=== PATIENT | female | born 1990 | race Caucasian/White ===

== ENCOUNTER 2020-11-09 12:39 | Emergency (ER) | payer BC ==
[2020-11-09 12:44] VITALS: RESP 18; TEMP 97.5
[2020-11-09] MEDS ORDERED: SODIUM CHLORIDE 0.9% 1,000 ML IV STA (12:55)
[2020-11-09] MEDS ORDERED: diphenhydrAMINE 50 MG/ML 1 ML VIAL IVP STA (12:55)
[2020-11-09] MEDS ORDERED: ONDANSETRON 4 MG/2 ML VIAL IVP STA (12:55)
--- NOTE | 2020-11-09 13:12 | ED ---
Nausea/Vomiting/Diarrhea HPI - General Chief complaint: Nausea/Vomiting/Diarrhea Stated complaint: 19wks preg, vomiting, near syncope Time Seen by Provider: 11/09/20 12:47 Source: patient, family Mode of arrival: wheelchair Limitations: no limitations - History of Present Illness Initial comments: Patient is a 30-year-old female, currently 19 weeks , presenting to emergency Department with complaints of acute onset of nausea, vomiting, lighthe adedness and abdominal cramping that seemed to start this morning. She states she has been camping over the past few days, some kids that she has been camping with came down with a stomach flu, she developed the symptoms today. No fevers that she is aware of. She is complaining of some chest tightness but feels like it could be coming from vomiting so much. She denies any cardiac history. She is complaining of some lower abdominal cramping. She has been feeling baby move earlier this morning but not so much in the past 1-2 hours. She denies any vaginal bleeding. She is , [employer] is Dr. Farley. 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 Thus far, some intermittent mild nausea throughout the but nothing severe. She feels lightheaded appears unable to tolerate oral intake since this morning. Patient denies any shortness of breath, denies any dysuria. She has no further complaints at this time. Upon arrival to the ER her vitals are stable. - Related Data Previous Rx's Medication Instructions Recorded Ondansetron Odt [Zofran Odt] 4 mg PO Q8HR PRN #10 tab 11/09/20 Allergies Allergy/AdvReac Type Severity Reaction Status Date / Time No Known Allergies Allergy Verified 11/09/20 12:40 Review of Systems ROS Statement: Those systems with pertinent positive or pertinent negative responses have been documented in the HPI. ROS Other: All systems not noted in ROS Statement are negative. Past Medical History Past Medical History: No Reported History History of Any Multi-Drug Resistant Organisms: None Reported Past Surgical History: Appendectomy Past Psychological History: No Psychological Hx Reported Smoking Status: Never smoker Past Alcohol Use History: None Reported Past Drug Use History: None Reported General Exam - General Exam Comments Initial Comments: GENERAL: Patient is well-developed and well-nourished. Patient is nontoxic and in mild distress. HEAD: Atraumatic, normocephalic. EYES: Pupils equal round and reactive to light, extraocular movements intact, sclera anicteric, conjunctiva are normal. Eyelids were unremarkable. ENT: Nares patent, oropharynx clear without exudates. Moist mucous membranes. NECK: Normal range of motion, supple without lymphadenopathy or JVD. LUNGS: Unlabored respirations. Breath sounds clear to auscultation bilaterally and equal. No wheezes rales or rhonchi. HEART: Regular rate and rhythm without murmurs, rubs or gallops. ABDOMEN: Soft, nontender, normoactive bowel sounds. No guarding, no rebound. No masses appreciated. : Deferred MUSCULOSKELETAL: Normal extremities with adequate strength and normal range of motion, no pitting or edema. No clubbing or cyanosis. NEUROLOGICAL: Patient is alert and oriented x 3. Motor and sensory are also intact. Cranial nerves II through XII grossly intact. Symmetrical smile. Normal speech, normal gait. PSYCH: Normal mood, normal affect. SKIN: Warm, Dry, normal turgor, no rashes or lesions noted. Limitations: no limitations Course Vital Signs 11/09/20 11/09/20 12:41 13:10 Temperature 97.5 F L Pulse Rate 103 H 96 Respiratory 18 18 Rate Blood Pressure 107/63 109/72 O2 Sat by Pulse 98 99 Oximetry Medical Decision Making - Medical Decision Making Patient is a 30-year-old female, currently 19 weeks , presenting with acute onset of nausea, vomiting, abdominal cramping that started this morning. She's been around kids with a stomach bug she's been camping the last few days. He is also complaining of some chest tightness today. No previous cardiac history. EKG shows some T-wave inversions, no signs of acute ST segment elevation. Troponin is normal today. Labs show a very slight white count of 12.3, this is most likely reactive. Sodium was slightly low at 131, rest of l abs are unremarkable. Urine shows no evidence of infection, 2+ ketones. Patient was given 1 L fluids, Zofran and Tylenol for headache. She does report improvement of symptoms. Her vital signs are stable. Ultrasound today shows a gestational age of 19 weeks, no complicating process seen, heart rate in the 160s. I discussed the patient and her symptoms are most likely related to a viral GI virus. I recommended taking Zofran every 8 hours as needed for any nausea or vomiting. Increase her fluid intake. She can follow up with her [employer]. She is agreeable as planned care and is stable for discharge. Case discussed with Dr. Peña. - Lab Data Result diagrams: 11/09/20 13:14 11/09/20 13:14 Lab Results 11/09/20 11/09/20 11/09/20 Range/Units 13:14 13:14 13:14 WBC 12.3 H (3.8-10.6) k/uL RBC 3.90 (3.80-5.40) m/uL Hgb 12.9 (11.4-16.0) gm/dL Hct 36.4 (34.0-46.0) % MCV 93.3 (80.0-100.0) fL MCH 32.9 (25.0-35.0) pg MCHC 35.3 (31.0-37.0) g/dL RDW 12.9 (11.5-15.5) % Plt Count 238 (150-450) k/uL MPV 6.6 Neutrophils % 92 % Lymphocytes % 4 % Monocytes % 2 % Eosinophils % 0 % Basophils % 0 % Neutrophils # 11.4 H (1.3-7.7) k/uL Lymphocytes # 0.5 L (1.0-4.8) k/uL Monocytes # 0.3 (0-1.0) k/uL Eosinophils # 0.0 (0-0.7) k/uL Basophils # 0.0 (0-0.2) k/uL Sodium 131 L (137-145) mmol/L Potassium 3.6 (3.5-5.1) mmol/L Chloride 105 (98-107) mmol/L Carbon Dioxide 16 L (22-30) mmol/L Anion Gap 10 mmol/L BUN 8 (7-17) mg/dL Creatinine 0.42 L (0.52-1.04) mg/dL Est GFR (CKD-EPI)AfAm >90 (>60 ml/min/1.73 sqM) Est GFR (CKD-EPI)NonAf >90 (>60 ml/min/1.73 sqM) Glucose 99 (74-99) mg/dL Calcium 8.8 (8.4-10.2) mg/dL Total Bilirubin 0.4 (0.2-1.3) mg/dL AST 22 (14-36) U/L ALT 17 (4-34) U/L Alkaline Phosphatase 71 (38-126) U/L Troponin I (0.000-0.034) ng/mL Total Protein 6.4 (6.3-8.2) g/dL Albumin 3.7 (3.5-5.0) g/dL Lipase 47 (23-300) U/L Urine Color Yellow Urine Appearance Clear (Clear) Urine pH 8.0 (5.0-8.0) Ur Specific [place] 1.012 (1.001-1.035) Urine Protein Negative (Negative) Urine Glucose (UA) Negative (Negative) Urine Ketones 2+ H (Negative) Urine Blood Negative (Negative) Urine Nitrite Negative (Negative) Urine Bilirubin Negative (Negative) Urine Urobilinogen <2.0 (<2.0) mg/dL Ur Leukocyte Esterase Large H (Negative) Urine RBC <1 (0-5) /hpf Urine WBC 2 (0-5) /hpf Ur Squamous Epith Cells 2 (0-4) /hpf Urine Mucus Rare H (None) /hpf 11/09/20 Range/Units 13:14 WBC (3.8-10.6) k/uL RBC (3.80-5.40) m/uL Hgb (11.4-16.0) gm/dL Hct (34.0-46.0) % MCV (80.0-100.0) fL MCH (25.0-35.0) pg MCHC (31.0-37.0) g/dL RDW (11.5-15.5) % Plt Count (150-450) k/uL MPV Neutrophils % % Lymphocytes % % Monocytes % % Eosinophils % % Basophils % % Neutrophils # (1.3-7.7) k/uL Lymphocytes # (1.0-4.8) k/uL Monocytes # (0-1.0) k/uL Eosinophils # (0-0.7) k/uL Basophils # (0-0.2) k/uL Sodium (137-145) mmol/L Potassium (3.5-5.1) mmol/L Chloride (98-107) mmol/L Carbon Dioxide (22-30) mmol/L Anion Gap mmol/L BUN (7-17) mg/dL Creatinine (0.52-1.04) mg/dL Est GFR (CKD-EPI)AfAm (>60 ml/min/1.73 sqM) Est GFR (CKD-EPI)NonAf (>60 ml/min/1.73 sqM) Glucose (74-99) mg/dL Calcium (8.4-10.2) mg/dL Total Bilirubin (0.2-1.3) mg/dL AST (14-36) U/L ALT (4-34) U/L Alkaline Phosphatase (38-126) U/L Troponin I <0.012 (0.000-0.034) ng/mL Total Protein (6.3-8.2) g/dL Albumin (3.5-5.0) g/dL Lipase (23-300) U/L Urine Color Urine Appearance (Clear) Urine pH (5.0-8.0) Ur Specific [place] (1.001-1.035) Urine Protein (Negative) Urine Glucose (UA) (Negative) Urine Ketones (Negative) Urine Blood (Negative) Urine Nitrite (Negative) Urine Bilirubin (Negative) Urine Urobilinogen (<2.0) mg/dL Ur Leukocyte Esterase (Negative) Urine RBC (0-5) /hpf Urine WBC (0-5) /hpf Ur Squamous Epith Cells (0-4) /hpf Urine Mucus (None) /hpf - EKG Data EKG Comments: Normal sinus rhythm, T-wave abnormalities, inverted T waves in lead 2, 3, aVF. No previous EKGs to compare. The jugular rate 89, OH interval 138, QT 386. EKG reviewed with Dr. Peña. Disposition Clinical Impression: Nausea and vomiting during , Bilateral lower abdominal cramping Disposition: HOME SELF-CARE Condition: Stable Instructions (If sedation given, give patient instructions): Nausea and Vomiting in (ED) Additional Instructions: Please return to the Emergency Department if symptoms worsen or any other concerns. May take Zofran every 8 hours for any additional nausea. Please increase your fluid intake. Please follow up with your [employer] Prescriptions: Ondansetron Odt [Zofran Odt] 4 mg PO Q8HR PRN #10 tab PRN Reason: Nausea Is patient prescribed a controlled substance at d/c from ED?: No Referrals: Gretta,Simone, MD [Primary Care Provider] - 1-2 days Ruchi Farley MD [STAFF PHYSICIAN] - 1-2 days Time of Disposition: 14:45
[2020-11-09 13:19] VITALS: BP 109/72; PULSE 96
[2020-11-09 13:33] LABS: ALT 17 U/L (4-34); AST 22 U/L (14-36); African American GFR (CKD) >90 (>60 ml/min/1.73 sqM); Albumin 3.7 g/dL (3.5-5.0); Alkaline Phosphatase 71 U/L (38-126); Anion Gap 10 mmol/L; Basophils % (A) 0 %; Blood Urea Nitrogen 8 mg/dL (7-17); Calcium 8.8 mg/dL (8.4-10.2); Carbon Dioxide 16 mmol/L (22-30); Chloride 105 mmol/L (98-107); Eosinophils % (A) 0 %; Glucose 99 mg/dL (74-99); HCT 36.4 % (34.0-46.0); HGB 12.9 gm/dL (11.4-16.0); Lipase 47 U/L (23-300); Lymphocytes # (A) 0.5 k/uL (1.0-4.8); Lymphocytes % (A) 4 %; MCH 32.9 pg (25.0-35.0); MCHC 35.3 g/dL (31.0-37.0); MCV 93.3 fL (80.0-100.0); Mean Platelet Volume 6.6; Monocytes # (A) 0.3 k/uL (0-1.0); Monocytes % (A) 2 %; Neutrophils # (A) 11.4 k/uL (1.3-7.7); Neutrophils % (A) 92 %; Non-African American GFR(CKD) >90 (>60 ml/min/1.73 sqM); Platelet Count 238 k/uL (150-450); Potassium 3.6 mmol/L (3.5-5.1); RDW 12.9 % (11.5-15.5); Sodium 131 mmol/L (137-145); Total Bilirubin 0.4 mg/dL (0.2-1.3); Total Protein 6.4 g/dL (6.3-8.2); WBC 12.3 k/uL (3.8-10.6)
[2020-11-09 14:22] LABS: Appearance,Urine Clear (Clear); Bilirubin,Urine Negative (Negative); Blood,Urine Negative (Negative); Color,Urine Yellow; Glucose,Urine (UA) Negative (Negative); Ketones,Urine 2+ (Negative); Leukocyte Esterase,Urine Large (Negative); Mucus,Urine Rare /hpf; Nitrite,Urine Negative (Negative); Protein,Urine Negative (Negative); RBC,Urine <1 /hpf (0-5); Specific Gravity,Urine 1.012 (1.001-1.035); Squamous Epithelial Cell,Urine 2 /hpf (0-4); Urobilinogen,Urine <2.0 mg/dL (<2.0); WBC,Urine 2 /hpf (0-5)
[2020-11-09] MEDS ORDERED: ACETAMINOPHEN TAB 500 MG TAB PO STA (14:29)
--- NOTE | 2020-11-09 14:37 | US ---
EXAMINATION TYPE: US OB >= 14 wk fetus DATE OF EXAM: 11/09/2020 COMPARISON: None CLINICAL HISTORY: abd cramping, n/v, decreased movementAbdominal cramping, nausea, vomiting. Hx appen dectomy. . TECHNIQUE: Transabdominal (TA) GESTATIONAL AGE / DATING Physician Established: (19 weeks/1 day) EDC: 04/04/2021 Dates by LMP: (19 weeks/1 day) EDC: 04/04/2021 Dates by First Scan: This is first scan at this facility. Dates by Current Scan: (19 weeks/0 days) EDC: 04/05/2021 SURVEY IUP: Single PLACENTA: Anterior. Small complex area seen: 0.7 x 2.6 x 0.2 cm. There appears to be a smaller additi onal area of placental tissue seen posteriorly- accessory lobe?. PREVIA: No Previa KARIS: 13.03 cm Normal CERVICAL LENGTH (transabdominal: norm > 3.0cm): 3.66 cm BIOMETRY PRESENTATION: Breech LIE: Longitudinal BPD: 4.36 cm 19 weeks / 1 day HC: 16.89 cm 19 weeks / 4 days AC: 14.65 cm 20 weeks / 0 days FL: 2.68 cm 18 weeks / 1 day ESTIMATED WEIGHT IN GRAMS: 276.97 grams ESTIMATED WEIGHT IN LBS/OZ: 0 lbs. 10 oz. WEIGHT PERCENTAGE BASED ON ESTABLISHED DATES: 46.2% HC/AC: 1.15 Normal FL/AC: 18.29 HEART RATE: 160 bpm RHYTHM: Normal IMPRESSION: The ultrasound gestational age is 19 weeks. The MARTY is 04/05/2021. No complicating process seen.
== END 2020-11-09 15:08 | disposition home or self-care (01) ==
LOC: EC 12:39
DX: O21.9 Vomiting of pregnancy, unspecified (principal); O26.892 Other specified pregnancy related conditions, second trimester; Z3A.19 19 weeks gestation of pregnancy; Z90.49 Acquired absence of other specified parts of digestive tract
CPT/HCPCS: 99285; 96374; 96375; 96361 ×2; 36415; 93005; 80053; 83690; 84484; 85025; 81001; 76805; J1200; J2405

== ENCOUNTER 2021-03-23 11:30 | Inpatient (IN) | payer BC ==
[2021-03-23] MEDS ORDERED: TERBUTALINE 1 MG/ML VIAL SQ PRN (12:05)
[2021-03-23] MEDS ORDERED: OXYTOCIN 10 UNIT/ML 1 ML VIAL IM PRN (12:05)
[2021-03-23] MEDS ORDERED: LIDOCAINE 0.5% (PF) 5 MG/ML (50 ML SDV) SQ PRN (12:05)
[2021-03-23] MEDS ORDERED: METHYLERGONOVINE 0.2 MG/ML 1 ML AMP IM PRN (12:05)
[2021-03-23] MEDS ORDERED: CARBOPROST TROMETHAMINE 250 MCG/ML 1 ML AMP IM PRN (12:05)
[2021-03-23] MEDS ORDERED: OXYTOCIN 30 UNITS/500 ML NS 30 UNIT in SALINE 1 500ML.BAG IV SCH ×2 (12:15→19:30)
[2021-03-23] MEDS: LACTATED RINGERS 1,000 ML IV SCH ×2 (12:35→16:26)
[2021-03-23 12:37] LABS: Basophils % (A) 0 %; Eosinophils # (A) 0.1 k/uL (0-0.7); Eosinophils % (A) 1 %; HCT 36.7 % (34.0-46.0); HGB 12.6 gm/dL (11.4-16.0); Lymphocytes # (A) 2.1 k/uL (1.0-4.8); Lymphocytes % (A) 17 %; MCH 32.8 pg (25.0-35.0); MCHC 34.3 g/dL (31.0-37.0); MCV 95.5 fL (80.0-100.0); Mean Platelet Volume 8.4; Monocytes # (A) 0.5 k/uL (0-1.0); Monocytes % (A) 4 %; Neutrophils # (A) 9.4 k/uL (1.3-7.7); Neutrophils % (A) 77 %; Platelet Count 241 k/uL (150-450); RBC 3.84 m/uL (3.80-5.40); RDW 12.4 % (11.5-15.5); WBC 12.2 k/uL (3.8-10.6)
--- NOTE | 2021-03-23 12:46 | P.HPOB ---
History of Present Illness H&P Date: 03/23/21 Chief Complaint: Vaginal bleeding This is a 30-year-old 4 para 10-1 woman with an estimated due date of 04/04/2021 based on LMP consistent with ultrasound who presents to labor and delivery triage having a large gush of bloody fluid and increasing contractions over the past 12 hours. Her has been recently followed for gestational hypertension. She has screened negative for superimposed preeclampsia and is on labetalol twice daily for blood pressure control. She reports increasing painful contractions over the last 12-24 hours and an episode of a gush of fluid that appeared bloody to her. Upon initial evaluation in labor and delivery triage rupture of membranes is negative however the patient is 4+ centimeters dilated and actively ramana. She is therefore admitted in labor. heart tones are category 1 Obstetric history significant for previous term vaginal delivery and 2 first trimester miscarriages. X Laboratory data: Blood type O positive, antibody screen negative, rubella immune, VDRL nonreactive, hepatitis B surface antigen negative, HIV negative, gonorrhea and clinic cultures negative, gross tolerance testing within normal limits, group B strep negative. Review of Systems All systems: negative Past Medical History Past Medical History: No Reported History History of Any Multi-Drug Resistant Organisms: None Reported Past Surgical History: Appendectomy Past Anesthesia/Blood Transfusion Reactions: No Reported Reaction Past Psychological History: No Psychological Hx Reported Smoking Status: Never smoker Past Alcohol Use History: None Reported Past Drug Use History: None Reported - Past Family History Mother Family Medical History: Hyperlipidemia, Hypertension Medications and Allergies Home Medications Medication Instructions Recorded Confirmed Type Aspirin 81 mg PO DAILY 03/10/21 03/23/21 History Citalopram Hydrobromide [CeleXA] 10 mg PO DAILY 03/10/21 03/23/21 History Pnv 11/Iron Fum/Folic Acid/Om3 1 each PO DAILY 03/10/21 03/23/21 History [Virt-Leopoldo Dha Softgel] Labetalol [Trandate] 200 mg PO BID 03/23/21 03/23/21 History Allergies Allergy/AdvReac Type Severity Reaction Status Date / Time No Known Allergies Allergy Verified 03/10/21 13:52 Exam Vital Signs Temp Pulse Resp BP Pulse Ox 03/23/21 12:16 97.7 F 81 18 134/84 98 Intake and Output 03/22/21 03/23/21 03/23/21 22:59 06:59 14:59 Other: Weight 88.451 kg This is an actively laboring, uncomfortable but pleasant female. Targeted physical exam is performed. On pelvic examination the cervix is 5 cm dilated, 80% effaced and the vertex in the -3 station. Artificial rupture membranes is undertaken and clear fluid is noted. heart tones are category 1 and she is ramana every 2-5 minutes. She has 1+ bilateral lower extremity edema. Results Result Diagrams: 03/23/21 12:26 Abnormal Lab Results - Last 24 Hours (Table) 03/23/21 Range/Units 12:26 WBC 12.2 H (3.8-10.6) k/uL Neutrophils # 9.4 H (1.3-7.7) k/uL Assessment and Plan (1) induced hypertension Current Visit: Yes Status: Acute Code(s): O13.9 - GESTATIONAL HTN W/O SIGNIFICANT PROTEINURIA, UNSP TRIMESTER SNOMED Code(s): 38527546 (2) Spontaneous onset of labor Current Visit: Yes Status: Acute Code(s): TMC7085 - SNOMED Code(s): 39083784 (3) 38 weeks gestation of Current Visit: Yes Status: Acute Code(s): Z3A.38 - 38 WEEKS GESTATION OF SNOMED Code(s): 57932975 Plan: 30-year-old 4 para 10-1 woman admitted at 38+ weeks gestation in spontaneous active labor. complicated by gestational hypertension that is well controlled on labetalol twice a day. Blood pressures on admission are within normal limits. status is currently reassuring by external monitoring. She may receive an epidural anesthetic upon request in labor. Anticipate normal spontaneous vaginal delivery.
[2021-03-23] MEDS ORDERED: ROPIVACAINE 5MG/ML 20ML VIAL ONE (13:38)
[2021-03-23] MEDS ORDERED: fentaNYL (PF) 50 MCG/ML 5 ML AMP ONE (13:38)
[2021-03-23] MEDS ORDERED: SODIUM CHLORIDE 0.9% 100 ML BAG ONE ×2 (13:38→18:29)
[2021-03-23] MEDS ORDERED: CITRIC ACID-SODIUM CITRATE 15 ML CUP PO ONE (18:25)
[2021-03-23] MEDS ORDERED: KETOROLAC 15 MG/ML 1 ML VIAL ONE (18:29)
[2021-03-23] MEDS ORDERED: ceFAZolin 1,000 MG VIAL ONE (18:29)
[2021-03-23] MEDS ORDERED: ONDANSETRON 4 MG/2 ML VIAL ONE (18:29)
[2021-03-23] MEDS ORDERED: MORPHINE SULFATE (PF) 0.3 MG/0.3 ML SYR ONE (18:29)
[2021-03-23] MEDS ORDERED: OXYTOCIN 30 UNITS/500 ML NS BAG IV ONE (18:29)
[2021-03-23] MEDS ORDERED: PHENYLEPHRINE-0.9% NACL SYG 1,000 MCG/10 ML SYRINGE ONE (18:29)
[2021-03-23] MEDS ORDERED: NALBUPHINE 10 MG/ML (1 ML AMP) ONE (18:29)
[2021-03-23] MEDS ORDERED: METOCLOPRAMIDE 5 MG/ML 2 ML VIAL IVP PRN (19:30)
[2021-03-23] MEDS ORDERED: SIMETHICONE 80 MG CHEWABLE PO PRN (19:30)
[2021-03-23] MEDS ORDERED: NALOXONE 0.4 MG/ML 1 ML VIAL IV PRN (19:30)
[2021-03-23] MEDS ORDERED: LACTATED RINGERS 1,000 ML IV SCH (19:30)
[2021-03-23] MEDS ORDERED: diphenhydrAMINE 25 MG CAP PO PRN (19:30)
[2021-03-23] MEDS ORDERED: HYDROmorphone 1 MG/ML 1 ML SYRINGE IVP PRN (19:30)
[2021-03-23] MEDS ORDERED: diphenhydrAMINE 50 MG CAP PO PRN (19:30)
[2021-03-23] MEDS ORDERED: ONDANSETRON 4 MG/2 ML VIAL IVP PRN (19:30)
[2021-03-23] MEDS ORDERED: diphenhydrAMINE 50 MG/ML 1 ML VIAL IVP PRN ×2 (19:30)
[2021-03-23] MEDS ORDERED: ZOLPIDEM 5 MG TAB PO PRN (19:30)
--- NOTE | 2021-03-23 19:30 | P.OP ---
Date of Procedure: 03/23/21 Preoperative Diagnosis: Intrauterine at 38-2/7 weeks' gestation Nonreassuring heart tones Vaginal bleeding, suspected abruption Postoperative Diagnosis: Intrauterine at 38-2/7 weeks' gestation Nonreassuring heart tones Vaginal bleeding, suspect abruption Occiput posterior position Marginal placental cord insertion Procedure(s) Performed: Primary low transverse section Anesthesia: spinal Surgeon: Ruchi Farley Exchange Trouble Shooter #1: Merrill Burnett Estimated Blood Loss (ml): 700 IV fluids (ml): 1,000 Urine output (ml): 100 (Bloody preprocedure) Pathology: other (Placenta) Condition: stable Disposition: floor Indications for Procedure: This is a 30-year-old 4 para 10-1 woman who is admitted in spontaneous active labor at 38-2/7 weeks' gestation. She presented after having a gush of bloody fluid at home followed by increasing contraction activity. On admission on the she was found to be grossly ruptured but wasn't actively laboring. Epidural anesthetic was placed and artificial rupture of membranes was undertaken. Clear fluid was noted at that time. The patient received Pitocin augmentation. She began having category 2 heart tones with intermittent deep variable heart rate decelerations with good return to baseline and variability in between. She progressed to 8 cm dilated however began having increasing abdominal pain and vaginal bleeding. She remained 8 cm dilated with some swelling noted along the anterior portion of the cervix. She continued to have deep variable heart rate decelerations and I recommended proceeding to primary low transverse section in an expedited fashion. Verbal consent was obtained for the procedure. Operative Findings: Male infant in the direct occiput posterior position. Very thick, gelatinous umbilical cord was delivered from the incision as the presenting part. There was no nuchal cord. Apgars were 9 at 1 minute and 9 at 5 minutes and weight was 6 lbs. 3 oz., 2800 g. Placenta was intact but with a marginal appearing cord and some adherent clot of the placenta at the area of the cord insertion consistent with possible acute abruption. Normal-appearing bilateral fallopian tubes, ovaries and uterus. Description of Procedure: After verbal consent was obtained the patient was taken to the operating room where spinal anesthetic was administered rapidly. She was on the monitor during this timeframe and did have one heart rate deceleration to the 70 bpm with return to baseline. She was positioned, prepped and draped in appropriate timeout procedure was undertaken. Anesthetic was confirmed adequate and a low transverse skin incision was made and carried down to the underlying fascia sharply. The fascia was incised in the midline and extended bilaterally. The rectus muscles were bluntly in the midline and the peritoneum was entered bluntly. The peritoneal incision was extended inferiorly and superiorly with the Metzenbaum scissors. Bladder blade was placed and the vesicouterine peritoneum was created sharply. The bladder blade was replaced and a low transverse uterine incision was made. Of note the uterine incision was noted to be quite thin and distended. With entry into the uterus a large loop of cord presented from the incision initially. The head was then delivered from the incision from the direct occiput posterior position. The nose and mouth were bulb suctioned and the rest the infant was delivered onto the field. The cord was clamped and cut and the was taken to the warmer. An intact, three- vessel cord placenta was removed. Initial inspection revealed a marginal cord insertion and some adherent clot in the area of the placenta related to the cord insertion consistent with possible abruption. The uterus was exteriorized and was cleared of all clot and debris the uterine incision was noted to be low on the uterine segment. The uterus was then closed in a running locked fashion with 0 Vicryl suture followed by second imbricating layer of the same. The uterus was returned to the abdomen and the gutters were cleared of all clot and debris. Additional [id number] suture was placed along the midline of the uterus for hemostasis which was then noted. The peritoneal edges were inspected and hemostasis was noted. Peritoneum was reapproximated in the midline with 0 Vicryl suture. The fascial edges and rectus muscles were inspected and Bovie electrocautery was utilized were necessary for hemostasis. The fascia was then closed in a running fashion with 0 Vicryl suture. The subcuticular tissue was copiously suction irrigated and Bovie electrocautery utilized were necessary. Subcuticular tissue was reapproximated with 3-0 chromic and the skin was then closed in a subcutaneous fashion with 4-0 Vicryl suture. All counts reported to me as correct by the operating room staff and the patient received antibiotics preoperatively and Pitocin following delivery of the placenta. Of note the urine in the Schumacher catheter was bloody preprocedure after placement of the catheter. This remained somewhat pink and cloudy post procedure. The patient was transported to the recovery area in good condition.
[2021-03-23 21:28] LABS: Basophils # (A) 0.1 k/uL (0-0.2); Basophils % (A) 0 %; Eosinophils % (A) 0 %; HCT 35.5 % (34.0-46.0); HGB 12.1 gm/dL (11.4-16.0); Lymphocytes # (A) 1.6 k/uL (1.0-4.8); Lymphocytes % (A) 7 %; MCH 32.9 pg (25.0-35.0); MCV 96.9 fL (80.0-100.0); Mean Platelet Volume 8.3; Monocytes # (A) 0.9 k/uL (0-1.0); Monocytes % (A) 4 %; Neutrophils # (A) 20.1 k/uL (1.3-7.7); Neutrophils % (A) 88 %; Platelet Count 217 k/uL (150-450); RBC 3.66 m/uL (3.80-5.40); RDW 12.3 % (11.5-15.5); WBC 22.8 k/uL (3.8-10.6)
[2021-03-24] MEDS: LACTATED RINGERS 1,000 ML IV SCH ×2 (00:31→05:58)
[2021-03-24] MEDS: SENNOSIDES-DOCUSATE SODIUM 1 EACH TAB PO SCH ×3 (00:54→21:04)
[2021-03-24] MEDS: KETOROLAC 30 MG/ML 1 ML VIAL IVP SCH ×3 (01:50→19:21)
[2021-03-24] MEDS: ACETAMINOPHEN TAB 500 MG TAB PO SCH ×4 (03:15→18:02)
[2021-03-24] MEDS: IBUPROFEN 600 MG TAB PO SCH ×4 (03:16→21:03)
--- NOTE | 2021-03-24 07:20 | P.PN ---
Progress Note - Text Progress Note Date: 03/24/21 (9535) Anesthesia Postop day 1 Subjective: Status Post section with Duramorph. Patient seen and examined. Doing well without complaint. VAS 5-6 out of 10. Tolerable rest able.. No nausea or vomiting. Mild pruritus tolerable.. Denies fever. Gross lower extremity strength intact. . Without apparent anesthetic complications. Objective: Vital signs reviewed Heart: Regular Rate Lungs: Good chest excursion Abdomen: Appears nondistended Assessment: Status post with Duramorph postop day 1 Plan: Continue current care with your medical management. Anticipated and the Duramorph around 7pm tonight, you may see increased pain needs around this time. 2. This note was dictated using [employer] software. Please be advised there is a potential for misspellings or errors in cage maker.
[2021-03-24 07:57] LABS: Basophils % (A) 0 %; Eosinophils # (A) 0.1 k/uL (0-0.7); Eosinophils % (A) 0 %; HCT 32.3 % (34.0-46.0); Lymphocytes # (A) 2.2 k/uL (1.0-4.8); Lymphocytes % (A) 16 %; MCH 33.2 pg (25.0-35.0); MCV 97.8 fL (80.0-100.0); Mean Platelet Volume 8.3; Monocytes # (A) 0.5 k/uL (0-1.0); Monocytes % (A) 4 %; Neutrophils # (A) 10.4 k/uL (1.3-7.7); Neutrophils % (A) 78 %; Platelet Count 207 k/uL (150-450); RDW 12.6 % (11.5-15.5); WBC 13.3 k/uL (3.8-10.6)
--- NOTE | 2021-03-24 08:20 | P.PNOBGPC ---
Subjective - Subjective Principal diagnosis: Day 1 Interval history: Schumacher catheter was removed approximately 4 hours ago and she has been unable to void. She is uncomfortable with the sensation. She has had heavy lochia. Patient reports: Reports appetite normal, Reports pain well controlled, Reports ambulating normally, Denies voiding normally, Denies dizzy ambulation [place]: doing well Objective - Vital Signs Latest vital signs: Vital Signs Temp Pulse Resp BP Pulse Ox 03/24/21 04:00 98.4 F 87 16 138/82 96 03/24/21 00:00 98.2 F 94 16 148/86 97 03/23/21 21:20 81 16 137/81 99 03/23/21 20:50 82 16 131/77 99 03/23/21 20:20 78 16 141/79 99 03/23/21 20:05 86 16 135/75 99 03/23/21 19:50 85 16 155/72 99 03/23/21 19:35 88 16 109/65 98 03/23/21 19:20 96.8 F L 84 16 111/56 98 03/23/21 12:16 97.7 F 81 18 134/84 98 Intake and Output 03/23/21 03/24/21 03/24/21 22:59 06:59 14:59 Output Total 100 400 Balance -100 -400 Output: Urine 100 400 Uretheral (Schumacher) 400 Other: Voiding Method Indwelling Catheter # Voids 0 - Exam Extremities: Present: normal Abdomen: Present: normal appearance, soft, distention, tenderness Incision: Present: normal, dry, intact, dressed Uterus: Present: normal, firm. Absent: tenderness - Labs Labs: Abnormal Lab Results - Last 24 Hours (Table) 03/23/21 03/23/21 03/24/21 Range/Units 12:26 21:05 07:31 WBC 12.2 H 22.8 H 13.3 H (3.8-10.6) k/uL RBC 3.66 L 3.30 L (3.80-5.40) m/uL Hgb 11.0 L (11.4-16.0) gm/dL Hct 32.3 L (34.0-46.0) % Neutrophils # 9.4 H 20.1 H 10.4 H (1.3-7.7) k/uL Assessment and Plan (1) induced hypertension Current Visit: Yes Status: Acute Code(s): O13.9 - GESTATIONAL HTN W/O SIGNIFICANT PROTEINURIA, UNSP TRIMESTER SNOMED Code(s): 03340182 (2) Spontaneous onset of labor Current Visit: Yes Status: Acute Code(s): [id number] - SNOMED Code(s): 57708858 (3) 38 weeks gestation of Current Visit: Yes Status: Acute Code(s): Z3A.38 - 38 WEEKS GESTATION OF SNOMED Code(s): 26222272 (4) Non-reassuring heart rate or rhythm affecting management of fetus Current Visit: Yes Status: Acute Code(s): WPW0216 - SNOMED Code(s): 140575683 (5) Marginal insertion of umbilical cord Current Visit: Yes Status: Acute Code(s): KAS1662 - SNOMED Code(s): 97701455 (6) Placental abruption affecting delivery Current Visit: Yes Status: Acute Code(s): O45.90 - PREMATURE SEPARATION OF PLACENTA, UNSP, UNSP TRIMESTER SNOMED Code(s): 306611978 Plan: 30-year-old 4 now para 2 woman who is postop day 1 status post primary low transverse section done for nonreassuring status, vaginal bleeding and probable placental abruption. Operative findings and delivery events were reviewed with her this morning. Catheter was removed approximately 4 hours ago and she has uncomfortable urge to void but is unable to. We'll straight cath now. She reports heavier than usual lochia however her blood counts are stable this morning. Will likely improve with draining her bladder.
[2021-03-24] MEDS ORDERED: CITALOPRAM HYDROBROMIDE 10 MG TAB PO SCH ×2 (09:00→21:00)
[2021-03-25] MEDS: ACETAMINOPHEN TAB 500 MG TAB PO SCH (00:21)
[2021-03-25 00:41] VITALS: RESP 16
[2021-03-25] MEDS: IBUPROFEN 600 MG TAB PO SCH ×2 (04:18→12:43)
[2021-03-25] MEDS ORDERED: LABETALOL 200 MG TAB PO SCH (10:30)
[2021-03-25] MEDS: SENNOSIDES-DOCUSATE SODIUM 1 EACH TAB PO SCH (10:55)
[2021-03-25 11:03] VITALS: TEMP 98.2
[2021-03-25 12:24] VITALS: BP 123/78; PULSE 77
== END 2021-03-25 14:02 | disposition home or self-care (01) | DRG 788 ==
LOC: FBPOP 11:30 → 4FBP 12:06
PROVIDERS: ADMIT Obstetrics & Gynecology; ATTEND Obstetrics & Gynecology
PROC: 10D00Z1 Extraction of Products of Conception, Low, Open Approach (ICD-10-PCS; principal; 2021-03-23 18:30)
DX: O13.4 Gestational [pregnancy-induced] hypertension without significant proteinuria, complicating childbirth (principal); O45.93 Premature separation of placenta, unspecified, third trimester; O43.193 Other malformation of placenta, third trimester; O43.123 Velamentous insertion of umbilical cord, third trimester; O76 Abnormality in fetal heart rate and rhythm complicating labor and delivery; Z37.0 Single live birth; Z3A.38 38 weeks gestation of pregnancy; Z79.82 Long term (current) use of aspirin; Z79.899 Other long term (current) drug therapy; Z82.49 Family history of ischemic heart disease and other diseases of the circulatory system; Z90.49 Acquired absence of other specified parts of digestive tract
CPT/HCPCS: 85025; 86850; 86900; 86901; 88307

== ENCOUNTER → 2022-10-13 | Outpatient (CLI) | payer BC ==
--- NOTE | 2022-10-13 09:04 | CT ---
EXAMINATION TYPE: CT sinus wo con DATE OF EXAM: 10/13/2022 COMPARISON: None HISTORY: J30.1 ALLERGIC RHINITIS DUE TO POLLEN Unenhanced CT of the paranasal sinuses was performed in the axial and coronal planes. Bone and soft tissue settings are submitted. The paranasal sinuses demonstrate normal aeration and development. The paranasal sinuses are free of mucosal thickening or air fluid level. The osteal meatal units are patent bilaterally. Nasal septum is minimally deviated from right to left. No bony destructive changes are seen within the field of view. IMPRESSION: Nasal septum is minimally deviated from right to left.
== END | disposition home or self-care (01) ==
LOC: RADCTMAIN 08:34
PROVIDERS: ATTEND Otolaryngology
DX: J34.2 Deviated nasal septum (principal); J30.1 Allergic rhinitis due to pollen
CPT/HCPCS: 70486

== ENCOUNTER 2023-06-10 21:42 | Emergency (ER) | payer BC ==
--- NOTE | 2023-06-10 23:35 | ED ---
ENT HPI - General Chief complaint: ENT Stated complaint: MILAGRO,Throat Swollen Time Seen by Provider: 06/10/23 21:48 Source: patient Mode of arrival: ambulatory Limitations: no limitations - History of Present Illness Initial comments: 32-year-old female presenting to the ED with a chief complaint of sore throat. Patient states onset of sore throat 3 days ago. No dyspnea. Does note pain with swallowing but has been still able to eat and drink. Reports she has been taking ibuprofen at home however has been having continued pain and some difficulties swallowing therefore presented to the ED for further evaluation. Denies fever or chills. Also does note around the same time sore throat started started to experience some canker sores which she has history of. No chest pain or shortness of breath. No other complaints at this time. - Related Data Home Medications Medication Instructions Recorded Confirmed Aspirin 81 mg PO DAILY 03/10/21 03/23/21 Citalopram Hydrobromide [CeleXA] 10 mg PO DAILY 03/10/21 03/23/21 Pnv 11/Iron Fum/Folic Acid/Om3 1 each PO DAILY 03/10/21 03/23/21 [Virt-Leopoldo Dha Softgel] Labetalol [Trandate] 200 mg PO BID 03/23/21 03/23/21 Allergies Allergy/AdvReac Type Severity Reaction Status Date / Time No Known Allergies Allergy Verified 06/10/23 21:47 Review of Systems ROS Statement: Those systems with pertinent positive or pertinent negative responses have been documented in the HPI. ROS Other: All systems not noted in ROS Statement are negative. Past Medical History Past Medical History: No Reported History History of Any Multi-Drug Resistant Organisms: None Reported Past Surgical History: Appendectomy Past Anesthesia/Blood Transfusion Reactions: No Reported Reaction Past Psychological History: Anxiety Smoking Status: Never smoker Past Alcohol Use History: Rare Past Drug Use History: None Reported - Past Family History Mother Family Medical History: Hyperlipidemia, Hypertension General Exam Limitations: no limitations General appearance: alert, in no apparent distress ENT exam: Present: other (Oropharynx has no significant swelling of the tonsils. No overlying exudates. No evidence of peritonsillar abscess at this time. No stridor. Tolerating secretions.) Respiratory exam: Present: normal lung sounds bilaterally Cardiovascular Exam: Present: regular rate GI/Abdominal exam: Present: soft Neurological exam: Present: alert, oriented X3 Skin exam: Present: warm, dry Course Vital Signs 06/10/23 21:44 Temperature 97.7 F Pulse Rate 108 H Respiratory 20 Rate Blood Pressure 165/86 O2 Sat by Pulse 99 Oximetry Medical Decision Making - Medical Decision Making Was pt. sent in by a medical professional or institution ([facility], [facility], urgent care, hospital, or [facility]...) When possible be specific @ -No Did you speak to anyone other than the patient for history (EMS, parent, family, police, friend...)? What history was obtained from this source @ -No Did you review nursing and triage notes (agree or disagree)? Why? @ -I reviewed and agree with nursing and triage notes Were old charts reviewed (outside hosp., previous admission, EMS record, old EKG, old radiological studies, urgent care reports/EKG's, [facility] records)? Report findings @ -No old charts were reviewed Differential Diagnosis (chest pain, altered mental status, abdominal pain women, abdominal pain men, vaginal bleeding, weakness, fever, dyspnea, syncope, h eadache, dizziness, GI bleed, back pain, seizure, CVA, palpatations, mental health, musculoskeletal)? @ -Differential Fever: Pneumonia, viral URI, endocarditis, myocarditis, pericarditis, otitis, sinusitis, peritonsillar Abscess, retropharyngeal Abscess, epiglottitis, peritonitis, appendicitis, Lillie cystitis, diverticulitis, hepatitis, colitis, UTI, PID, TOA, pyelonephritis, prostatitis, epididymitis, meningitis, encephalitis, pulmonary embolism, CVA, thyroid storm, pancreatitis, adrenal crisis, cavernous sinus thrombosis, this is not meant to be an all-inclusive list. EKG interpreted by me (3pts min.). @ -None X-rays interpreted by me (1pt min.). @ -None done CT interpreted by me (1pt min.). @ -None done U/S interpreted by me (1pt. min.). @ -None done What testing was considered but not performed or refused? (CT, X-rays, U/S, labs)? Why? @ -None What meds were considered but not given or refused? Why? @ -None Did you discuss the management of the patient with other professionals (professionals i.e. [facility], [facility], lab, RT, psych nurse, clinical social work aide, language instructor, teacher, svp chief marketing officer, casework manager)? Give summary @ -No Was smoking cessation discussed for >3mins.? @ -No Was critical care preformed (if so, how long)? @ -No Were there social determinants of health that impacted care today? How? (Homelessness, low income, unemployed, alcoholism, drug addiction, transportation, low edu. Level, literacy, decrease access to med. care, halfway, rehab)? @ -No Was there de-escalation of care discussed even if they declined (Discuss DNR or withdrawal of care, Hospice)? DNR status @ -No What co-morbidities impacted this encounter? (DM, HTN, Smoking, COPD, CAD, Cancer, CVA, ARF, Chemo, Hep., AIDS, mental health diagnosis, sleep apnea, morbid obesity)? @ -None Was patient admitted / discharged? Hospital course, mention meds given and route, prescriptions, significant lab abnormalities, going to OR and other pertinent info. @ -Discharge 32-year-old female presenting to the ED with complaints of sore throat for the past 2 to 3 days. Was seen at urgent care prior and prescribed ibuprofen. Despite taking this reports that she has had some pain with swallowing food. Exam benign. Serology panel reviewed. Heterophile, RSV, COVID, influenza, strep negative. Patient was advised that etiology is likely viral in nature. Offered prescription medications for analgesia however patient declined. Discharged home in stable condition. Discussed return precautions with patient and who verbalized agreement. Undiagnosed new problem with uncertain prognosis? @ -No Drug Therapy requiring intensive monitoring for toxicity (Heparin, Nitro, Insulin, Cardizem)? @ -No Were any procedures done? @ -No Diagnosis/symptom? @ -Viral pharyngitis Acute, or Chronic, or Acute on Chronic? @ -Acute Uncomplicated (without systemic symptoms) or Complicated (systemic symptoms)? @ -Uncomplicated Side effects of treatment? @ -No Exacerbation, Progression, or Severe Exacerbation? @ -No Poses a threat to life or bodily function? How? (Chest pain, [place], [place], pneumonia, PE, COPD, DKA, ARF, appy, cholecystitis, CVA, Diverticulitis, Homicidal, Suicidal, threat to staff... and all critical care pts) @ -No - Lab Data Lab Results 06/10/23 06/10/23 06/10/23 Range/Units 22:20 22:20 22:20 Heterophile Antibody Negative (Negative) Influenza Type A (PCR) Not Detected (Not Detectd) Influenza Type B (PCR) Not Detected (Not Detectd) RSV (PCR) Not Detected (Not Detectd) SARS-CoV-2 (PCR) Not Detected (Not Detectd) Group A Strep (PCR) NOT DETECTED (Not Detectd) Disposition Clinical Impression: Pharyngitis Disposition: HOME SELF-CARE Condition: Good Instructions (If sedation given, give patient instructions): Pharyngitis (ED) Additional Instructions: Please return to the Emergency Department if symptoms worsen or any other concerns. Please follow-up with your primary care provider. Is patient prescribed a controlled substance at d/c from ED?: No Referrals: Simone Glynn MD [Primary Care Provider] - 1-2 days Time of Disposition: 23:37
[2023-06-11 00:28] VITALS: BP 152/86; PULSE 100; RESP 16; TEMP 98.7
== END 2023-06-10 23:51 | disposition home or self-care (01) ==
LOC: EC 21:42
DX: J02.8 Acute pharyngitis due to other specified organisms (principal)
CPT/HCPCS: 36415; 86308; 87636; 87651; 99284